=== PATIENT | male | born 1975 | race Caucasian/White ===

== ENCOUNTER 2019-04-09 18:46 | Emergency (ER) | payer OTHER, SELFPAY ==
[2019-04-09] VITALS (14 sets, daily range): BP systolic 152–167; BP diastolic 96–104; PULSE 87–131; RESP 10–18; TEMP 36.8; O2SAT 94–100
[2019-04-09] MEDS: EPINEPHrine 0.3 MG KIT IM (18:50)
--- NOTE | 2019-04-09 18:52 | W.ED.GENAD ---
Discharge Plan Disposition Patient Disposition: HOME Condition: Stable Discharge Details Chief Complaint: Allergic Clinical Impression: Anaphylaxis Primary Care Provider: Sharon Yap ED Provider: Mesfin Goins Home Meds and New Rx's Prescriptions: New prednisone 20 mg tablet 20 mg PO DAILY Qty: 12 RF: 0 epinephrine 0.3 mg/0.3 mL auto-injector 0.3 mg IM ONCE PRN (Reason: anaphylaxis) Qty: 2 RF: 0 Continued famotidine [Pepcid AC] 10 MG tablet 10 mg PO DAILY RF: 0 Discharge Instructions Instructions: Anaphylaxis (ED) Additional Instructions: if you develop the rash with shortness of breath, abdominal pain, vomit or feel your throat swelling use your epi pen and return to the emergency department you can take benadryl as needed for itching, follow dosing instructions on packaging Medical Decision Making 43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 he arrives tachycardia with stable bp, exam and symptoms consistent with anaphylaxis, will tx with IM epi, iv steroids and h2 blockers (took benadryl at home). He was stung in the right congregational and this site as no signs of trauma or infection at this time pt's erythema now gone and Hr in the 80's and he feels much better, will continue to monitor pt remains stable, asymptomatic at this time pt requesting d/c and feel this is reasonable given no symptoms and hd stable. Return precautions given Differential Diagnosis anaphylaxis, allergic reaction HPI General Mode of arrival: ambulatory. Date/Time Provider Initiated Documentation: 04/09/19 18:48. Limitations to Documentation: no limitations. Information obtained by: patient. History of Present Illness 43 year old M presents to the emergency department with the chief complaint of rash, described as moderate, Patient started experiencing this hour(s) (1) and it has been constant. No relieving factors improve symptom(s), No exacerbating factors reported . Patient did receive the following treatments prior to arrival, other (benadryl) Related Data Home Medications Medication Instructions Recorded Confirmed famotidine [Pepcid AC] 10 mg PO DAILY 01/07/17 11/21/17 epinephrine 0.3 mg IM ONCE PRN #2 each 07/01/19 prednisone 20 mg PO DAILY #12 tab 04/09/19 Previous Rx's Medication Instructions Recorded epinephrine 0.3 mg IM ONCE PRN #2 each 04/09/19 prednisone 20 mg PO DAILY #12 tab 04/09/19 Allergies Allergy/AdvReac Type Severity Reaction Status Date / Time Penicillins Allergy Mild Skin Rash Unverified 11/21/17 19:16 General Stated Complaint: Allergic SOL: 2 Review of Systems Review of Systems All systems reviewed & are unremarkable except as noted in HPI and below Constitutional Denies chills and Denies fever(s) ENT Denies change in voice Cardiovascular Denies chest pain Gastrointestinal Denies abdominal pain, Denies nausea and Denies vomiting Musculoskeletal Denies joint swelling PFSH Social History Smoking/Tobacco Use Status: Never Alcohol Intake: current Alcohol Intake frequency: a few times a month Drug use: Never Substance use type: does not use Do you feel safe at home: Yes Do you feel safe in your relationship?: Yes Exam Const General: no acute distress Orientation: alert HENMT Head: normal to inspection Ears: external ears normal General nose exam: external nose normal Mouth: moist mucous membranes Eyes General: appearance normal, both eyes and all related structures Neck Neck: normal visual inspection Resp Effort & Inspection: normal respiratory effort and able to speak in complete sentences Cardio Rate: tachycardic Skin General skin exam: elasticity normal Neuro General: alert and oriented x3 Extrem General: normal to inspection Psych Mental Status: mental status grossly normal Course Vital Signs Temperature 36.8 C 04/09/19 18:49 Pulse 131 H 04/09/19 18:49 Respiratory Rate 14 04/09/19 18:49 Blood Pressure 167/104 H 04/09/19 18:49 Pulse Oximetry 97 04/09/19 18:49 Temperature 36.8 C 04/09/19 18:49 Temperature Source Tympanic 04/09/19 18:49 Pulse 131 H 04/09/19 18:49 Respiratory Rate 14 04/09/19 18:49 Blood Pressure 167/104 H 04/09/19 18:49 Blood Pressure Position Sitting 04/09/19 18:49 Pulse Oximetry 97 04/09/19 18:49 Oxygen Delivery Method Room Air 04/09/19 18:49 Oxygen Flow Rate 0 04/09/19 18:49 Pain Level 0 04/09/19 18:49 Critical Care Time Critical Care Time: Yes Total Critical Care Time: 60 (minutes) Attestation: time spent administering IM epi, frequent reassessments, monitoring hemodynamics in patient with anaphylaxis with potential to deteriorate at any time
--- NOTE | 2019-04-09 18:55 | ED.GENADUL_ITS ---
Discharge Plan Disposition Patient Disposition: HOME Condition: Stable Discharge Details Chief Complaint: Allergic Clinical Impression: Anaphylaxis Primary Care Provider: Sharon Yap ED Provider: Mesfin Goins Home Meds and New Rx's Prescriptions: New prednisone 20 mg tablet 20 mg PO DAILY Qty: 12 RF: 0 epinephrine 0.3 mg/0.3 mL auto-injector 0.3 mg IM ONCE PRN (Reason: anaphylaxis) Qty: 2 RF: 0 Continued famotidine [Pepcid AC] 10 MG tablet 10 mg PO DAILY RF: 0 Discharge Instructions Instructions: Anaphylaxis (ED) Additional Instructions: if you develop the rash with shortness of breath, abdominal pain, vomit or feel your throat swelling use your epi pen and return to the emergency department you can take benadryl as needed for itching, follow dosing instructions on packaging Medical Decision Making 43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 he arrives tachycardia with stable bp, exam and symptoms consistent with anaphylaxis, will tx with IM epi, iv steroids and h2 blockers (took benadryl at home). He was stung in the right taoist and this site as no signs of trauma or infection at this time pt's erythema now gone and Hr in the 80's and he feels much better, will continue to monitor pt remains stable, asymptomatic at this time pt requesting d/c and feel this is reasonable given no symptoms and hd stable. Return precautions given Differential Diagnosis anaphylaxis, allergic reaction HPI General Mode of arrival: ambulatory . Date/Time Provider Initiated Documentation: 04/09/19 18:48 . Limitations to Documentation: no limitations . Information obtained by: patient . History of Present Illness 43 year old M presents to the emergency department with the chief complaint of rash, described as moderate, Patient started experiencing this hour(s) (1) and it has been constant. No relieving factors improve symptom(s), No exacerbating factors reported . Patient did receive the following treatments prior to arrival, other (benadryl) Related Data Home Medications Medication Instructions Recorded Confirmed famotidine [Pepcid AC] 10 mg PO DAILY 01/07/17 11/21/17 epinephrine 0.3 mg IM ONCE PRN #2 each 07/01/19 prednisone 20 mg PO DAILY #12 tab 04/09/19 Previous Rx's Medication Instructions Recorded epinephrine 0.3 mg IM ONCE PRN #2 each 04/09/19 prednisone 20 mg PO DAILY #12 tab 04/09/19 Allergies Allergy/AdvReac Type Severity Reaction Status Date / Time Penicillins Allergy Mild Skin Rash Unverified 11/21/17 19:16 General Stated Complaint: Allergic SOL: 2 Review of Systems Review of Systems All systems reviewed & are unremarkable except as noted in HPI and below Constitutional Denies chills and Denies fever(s) ENT Denies change in voice Cardiovascular Denies chest pain Gastrointestinal Denies abdominal pain, Denies nausea and Denies vomiting Musculoskeletal Denies joint swelling PFSH Social History Smoking/Tobacco Use Status: Never Alcohol Intake: current Alcohol Intake frequency: a few times a month Drug use: Never Substance use type: does not use Do you feel safe at home: Yes Do you feel safe in your relationship?: Yes Exam Const General: no acute distress Orientation: alert HENMT Head: normal to inspection Ears: external ears normal General nose exam: external nose normal Mouth: moist mucous membranes Eyes General: appearance normal, both eyes and all related structures Neck Neck: normal visual inspection Resp Effort & Inspection: normal respiratory effort and able to speak in complete sentences Cardio Rate: tachycardic Skin General skin exam: elasticity normal Neuro General: alert and oriented x3 Extrem General: normal to inspection Psych Mental Status: mental status grossly normal Course Vital Signs Temperature 36.8 C 04/09/19 18:49 Pulse 131 H 04/09/19 18:49 Respiratory Rate 14 04/09/19 18:49 Blood Pressure 167/104 H 04/09/19 18:49 Pulse Oximetry 97 04/09/19 18:49 Temperature 36.8 C 04/09/19 18:49 Temperature Source Tympanic 04/09/19 18:49 Pulse 131 H 04/09/19 18:49 Respiratory Rate 14 04/09/19 18:49 Blood Pressure 167/104 H 04/09/19 18:49 Blood Pressure Position Sitting 04/09/19 18:49 Pulse Oximetry 97 04/09/19 18:49 Oxygen Delivery Method Room Air 04/09/19 18:49 Oxygen Flow Rate 0 04/09/19 18:49 Pain Level 0 04/09/19 18:49 Critical Care Time Critical Care Time: Yes Total Critical Care Time: 60 (minutes) Attestation: time spent administering IM epi, frequent reassessments, monitoring hemodynamics in patient with anaphylaxis with potential to deteriorate at any time
[2019-04-09] MEDS: methylPREDNISolone SUCC 125 MG VIAL IVP (18:56)
[2019-04-09] MEDS: Normal Saline 1,000 ML 1000 ML IV (18:57)
[2019-04-09] MEDS: diphenhydrAMINE 25 MG CAP PO (19:21)
== END 2019-04-09 21:15 | disposition home or self-care (01) ==
LOC: ER 20:05
PROVIDERS: Emergency Provider Emergency Medicine; PCP Family Medicine
DX: T63.411A Toxic effect of venom of centipedes and venomous millipedes, accidental (unintentional), initial encounter (principal)
CPT/HCPCS: 96361; 96372; 96374; 96375; 99291; J0171; J2930

== ENCOUNTER 2022-09-05 08:21 | Emergency (ER) | payer OTHER, SELFPAY ==
[2022-09-05 08:27] VITALS: BP 172/118; PULSE 83; RESP 18; TEMP 36.6; O2SAT 96
--- NOTE | 2022-09-05 09:46 | ED.GENADUL_ITS ---
Discharge Plan Disposition Patient Disposition: Home Condition: Stable Discharge Details Clinical Impression: Left shoulder pain, Radicular pain in left arm Primary Care Provider: None,None ED Provider: Gerardo Vincent Home Meds and New Rx's Prescriptions: New cyclobenzaprine 10 mg tablet 10 mg PO TID PRNQty: 10 0RF Continued epinephrine 0.3 mg/0.3 mL auto-injector 0.3 mg IM ONCE PRN (Reason: anaphylaxis) Qty: 2 0RF nebivolol 10 mg Tablet 10 mg PO DAILY Discharge Instructions Instructions: Shoulder Pain (ED) Additional Instructions: You are hesitant to take morphine or an anti-inflammatory which certainly makes controlling your pain more difficult. I strongly recommend [id number] Tylenol and/or Naprosyn as directed for symptomatic control. Cool and/or warm compresses every 2 hours for 20 minutes. Gentle stretching as tolerated. Flexeril as directed, this medication can cause drowsiness. Please contact your primary care provider tomorrow to discuss your ER visit and need for outpatient reevaluation. Discharge Data Discharge Date/Time-TO BE ENTERED AT DEPARTURE: 09/05/22 11:07 Medical Decision Making This is a 46-year-old gentleman past medical history of hypertension presenting to the ER stating he awoke 4 or 5 mornings ago feeling stiffness to his left neck-upper back associated with paresthesias down his arm, and discomfort. He has tried [id number] Tylenol with little relief. States he was told not to take anti-inflammatories secondary to edema. He denies any chest pain or shortness of breath. states that this is actually been going on probably for a couple of weeks and he started to get better but then overdid it causing more pain. Clinically this certainly appears to be musculoskeletal with radiculopathy. There is no midline point tenderness in his cervical spine. He is afebrile. Neuro, vascular, tendon intact. No chest pain or shortness of breath, extremely low suspicion for any cardiac etiology. Given there was no obvious trauma, x-ray likely of little value. Discussed options with patient. He is agreeable to IM Toradol and Norflex. He is quite hesitant about Toradol but agreeable to take it. He declines any morphine. He also declines a sling. On reevaluation he reports modest relief of his discomfort although symptoms have not resolved completely. Patient is requesting discharge and is agreeable to a short-term prescription of Flexeril. He does not want anything stronger. He will continue taking [id number] medications. We did discuss the importance of outpatient follow-up whether it be through his PCP or orthopedics for further evaluation, potential physical therapy, advanced imaging, etc. Standard discharge and return precautions were provided. Patient understands, is agreeable to this plan, and has no additional questions or concerns upon discharge. This documentation was generated using [employer] system, please disregard any oddities of phrase or misspellings. Medical Records Medical records reviewed: Yes I reviewed the patient's medical records. Sign Out No HPI General Mode of arrival: ambulatory . Date/Time Provider Initiated Documentation: 09/05/22 08:38 . Limitations to Documentation: no limitations . Information obtained by: patient and family . History of Present Illness 46 year old M presents to the emergency department with the chief complaint of L shoulder pain, described as severe, with intensity rated at 8. Quality is described as aching, and is localized to the left and upper extremity. Patient extremity (down left arm). Patient started experiencing this day(s) (4) and it has been constant. No relieving factors improve symptom(s), Movement worsens symptoms . Patient notes no other symptoms.. Patient did receive the following treatments prior to arrival, none Related Data Home Medications Medication Instructions Recorded Confirmed epinephrine 0.3 mg/0.3 mL 0.3 mg (0.3 mL) IM ONCE PRN 04/09/19 09/05/22 injection, auto-injector anaphylaxis #2 ea cyclobenzaprine 10 mg tablet 10 mg PO TID PRN #10 tabs 09/05/22 nebivolol 10 mg tablet 10 mg PO DAILY 09/05/22 09/05/22 Previous Rx's Medication Instructions Recorded epinephrine 0.3 mg/0.3 mL 0.3 mg (0.3 mL) IM ONCE PRN 04/09/19 injection, auto-injector anaphylaxis #2 ea cyclobenzaprine 10 mg tablet 10 mg PO TID PRN #10 tabs 09/05/22 Allergies Allergy/AdvReac Type Severity Reaction Status Date / Time Penicillins Allergy Mild Skin Rash Unverified 11/21/17 19:16 General Stated Complaint: Orthopedic SOL: 4 Review of Systems Constitutional Constitutional: Denies fever(s) and Denies weakness ENT Ears, Nose, Mouth, and Throat: Denies neck pain Cardiovascular Cardiovascular: Denies chest pain and Denies dyspnea Respiratory Respiratory: Denies cough and Denies dyspnea Gastrointestinal Gastrointestinal: Denies abdominal pain, Denies nausea and Denies vomiting Musculoskeletal Musculoskeletal: Reports back pain, Denies myalgias, Denies arthralgias, Denies neck pain, Denies numbness, Reports stiffness and Reports tingling Integumentary/Breasts Skin/Breast: Denies rash Neurologic Neurologic: Denies numbness, Reports tingling and Denies weakness PFSH All Active Problems Left shoulder pain (Acute) Radicular pain in left arm (Acute) Social History Smoking/Tobacco Use Status: Never Smoking risk assessment performed?: Yes Alcohol Intake: current Alcohol Intake frequency: a few times a month Drug use: Occasionally Substance use type: marijuana Do you feel safe at home: Yes Do you feel safe in your relationship?: Yes Exam Const General: cooperative, healthy appearing and no acute distress Orientation: alert and awake HENVA Head: normal to inspection, normocephalic and atraumatic Face and sinus: normal facial exam Mouth: moist mucous membranes Eyes Conjunctivae: conjunctivae normal Neck Neck: normal visual inspection, full ROM, no meningeal signs, trachea midline, supple and nontender Chest Chest: normal inspection of the chest and normal palpation of entire chest wall Resp Effort & Inspection: normal respiratory effort and able to speak in complete sentences Auscultation: clear to auscultation bilaterally Cardio Rate: regular rate Rhythm: regular rhythm Back/Spine/Pelvis Back: no CVA tenderness and back tenderness Back/spine/pelvis image: 1. Diffuse soft tissue tenderness. There is no bony point tenderness, swelling, erythema, spasm. Skin General skin exam: no rashes or lesions noted Neuro General: patient alert, patient awake, moves all extremities and no focal motor deficits Cognition: normal cognition Speech: speech normal Gait: normal gait Motor: muscle tone normal throughout, strength 5/5 throughout, no movement abnormalities noted and no fasciculations Sensory Exam: no sensory deficits noted Extrem General: normal to inspection, full ROM and capillary refill normal Other: Significant increase of pain with movement of the left arm especially greater than 90 degrees. Normal radial pulse and capillary refill. 5 out of 5 strength. Neuro, vascular, tendon intact. Psych Appearance: grossly normal Mental Status: mental status grossly normal Course Vital Signs Vital signs: Vital Signs Temperature 36.6 C 09/05/22 08:27 Pulse 83 09/05/22 08:27 Respiratory Rate 18 09/05/22 08:27 Blood Pressure 172/118 H 09/05/22 08:27 Pulse Oximetry 96 09/05/22 08:27 Temperature 36.6 C 09/05/22 08:27 Pulse 83 09/05/22 08:27 Respiratory Rate 18 09/05/22 08:27 Respiratory Effort Non-Labored 09/05/22 08:31 Blood Pressure 172/118 H 09/05/22 08:27 Blood Pressure Position Sitting 09/05/22 08:27 Pulse Oximetry 96 09/05/22 08:27 Oxygen Delivery Method Room Air 09/05/22 08:27 Oxygen Flow Rate 0 09/05/22 08:27 PAWSS Have you Been Recently Intoxicated or Drunk Within the Last 30 days?: No Have you Ever Experienced Previous Episodes of Alcohol Withdrawal?: No Have you ever Experienced Withdrawal Seizures?: No Have you ever Experienced Delirium Tremens(DT)s?: No Have you ever undergone Alcohol Rehabilitation Treatment (i.e, inpt ot outpatient treatment programs)?: No Have you ever Experienced Blackouts?: No Have you ever Combined Alcohol with other Downers within the last 90 days?: No Have you ever Combined Alcohol with any other Substance of Abuse during the last 90 days?: No Positive Blood Alcohol level on Presentation? [PCS.BAL]: No Evidence of Increased Autonomic Activity (i.e. HR>120, tremor, sweating, agitation, nausea)?: No Result: 0
[2022-09-05] MEDS: Orphenadrine 60 MG/2 ML VIAL IM (10:13)
[2022-09-05] MEDS: Ketorolac 60 MG/2 ML VIAL IM (10:13)
[2022-09-05 10:22] VITALS: BP 163/116; PULSE 68; O2SAT 97
[2022-09-05] MEDS: Cyclobenzaprine 10 MG TAB, 3 TABS/BTL 30 MG (11:01)
== END 2022-09-05 11:07 | disposition home or self-care (01) ==
PROVIDERS: Emergency Provider Physician Assistant
DX: M25.512 Pain in left shoulder (principal); M79.602 Pain in left arm; M54.10 Radiculopathy, site unspecified
CPT/HCPCS: 96372; 99284; J2360; 99283; J1885

== ENCOUNTER 2023-05-27 17:09 | Outpatient (CLI) | payer OTHER, SELFPAY ==
[2023-05-27 15:29] LABS: D-Dimer 135 ng/mlFEU (<500)
== END 2023-05-27 17:10 | disposition home or self-care (01) ==
LOC: LBO 17:09
PROVIDERS: Visit Provider Nurse Practitioner Family
DX: M79.651 Pain in right thigh (principal)
CPT/HCPCS: 36415; 85379

== ENCOUNTER 2024-01-20 08:11 | Emergency (ER) | payer OTHER, SELFPAY ==
[2024-01-20 08:13] VITALS: BP 190/118; PULSE 70; RESP 16; TEMP 37; O2SAT 95
--- NOTE | 2024-01-20 08:32 | W.ED.GENAD ---
Discharge Plan Disposition Patient Disposition: Home Condition: Stable Discharge Details Clinical Impression: Thoracic back sprain Primary Care Provider: Leandra Alston ED Provider: Edu Baker Home Meds and New Rx's Prescriptions: New cyclobenzaprine 10 mg tablet 10 mg PO TID PRN (Reason: back strain) Qty: 30 0RF Continued albuterol sulfate 90 mcg/actuation HFA aerosol inhaler 1 inh inhalation Q6H PRN (Reason: shortness of breath or wheezing) Qty: 8.5 0RF epinephrine 0.3 mg/0.3 mL auto-injector 0.3 mg IM ONCE PRN (Reason: anaphylaxis) Qty: 2 0RF nebivolol 10 mg Tablet 10 mg PO DAILY Discharge Instructions Instructions: Back Pain (ED) Additional Instructions: You were seen in the emergency department for your right-sided thoracic back strain. Please take 1000 mg of Tylenol every 6 hours consistently. Please take 2 Aleve in the morning and 2 in the evening, this will be easier than taking ibuprofen 4 times per day. Take the prescribed muscle relaxer sent to [facility] 3 times per day as needed, try to maintain good posture, apply gentle heat and ice to the area rating fashion, apply an [id number] lidocaine patch to the area for 12 hours each day, massage therapy or physical therapy visits, please return for any numbness and tingling in the arms or legs especially symmetrical or any problems urinating or defecating with groin numbness. HPI General Date/Time Provider Initiated Documentation: 01/20/24 08:18. HPI Narrative: 48 year-old male presents to ED today by POV/ambulating with a chief complaint of R thoracic back pain with onset for the past two days, felt he strained it while attempting to lift a heavy garbage bin from his truck. Quality described as R sided upper back pain, with muscle tension, no radiation to numbness/tingling, weakness, trauma, urinary retention, bowel incontinence, groin numbness. Severity is described as moderate to severe. Palliating factors include took ibuprofen around 0530 this morning. Provoking factors include nothing specific. Patient not anticoagulated. Related Data Home Medications Medication Instructions Recorded Confirmed epinephrine 0.3 mg/0.3 mL 0.3 mg (0.3 mL) IM ONCE PRN 04/09/19 01/20/24 injection, auto-injector anaphylaxis #2 ea nebivolol 10 mg tablet 10 mg PO DAILY 09/05/22 01/20/24 albuterol sulfate 90 mcg/actuation 1 inh inhalation Q6H PRN shortness 10/01/22 01/20/24 aerosol inhaler of breath or wheezing #8.5 grams cyclobenzaprine 10 mg tablet 10 mg PO TID PRN back strain #30 01/20/24 tabs Previous Rx's Medication Instructions Recorded epinephrine 0.3 mg/0.3 mL 0.3 mg (0.3 mL) IM ONCE PRN 04/09/19 injection, auto-injector anaphylaxis #2 ea albuterol sulfate 90 mcg/actuation 1 inh inhalation Q6H PRN shortness 10/01/22 aerosol inhaler of breath or wheezing #8.5 grams cyclobenzaprine 10 mg tablet 10 mg PO TID PRN back strain #30 01/20/24 tabs Allergies Allergy/AdvReac Type Severity Reaction Status Date / Time bee venom protein (honey bee) Allergy Severe Anaphylaxis Verified 01/20/24 08:18 Penicillins Allergy Mild Skin Rash Unverified 01/20/24 08:18 General Stated Complaint: Nk/Back Pain SOL: 3 Review of Systems All systems reviewed & are unremarkable except as noted in HPI and below Exam Narrative Exam Narrative: GENERAL APPEARANCE: Well-nourished, non-toxic, awake and alert, atraumatic, no acute distress. SKIN: Warm, pink, dry, intact, without rashes/lesions/ulcerations. HEAD: Normocephalic, atraumatic, normal hair distribution for gender/age. EYES: Pupils PERRLA, EOMs intact without nystagmus, normal conjunctiva, no exudates on lids/lashes. ENT: Nares patent, no circumoral cyanosis, no facial swelling NECK: Supple, trachea midline, painless cervical ROM. LUNGS/CHEST: Non-labored respirations, normal A/P diameter, symmetrical expansion, no chest wall deformity HEART (CV/PV): No peripheral edema, no JVD. ABDOMEN: Soft, non-distended, no guarding. MSK: Normal ROM, no swelling/deformity to bilateral UEs or LEs, moving all extremities without weakness, no cyanosis, spine midline without tenderness, normal curvature, R sided thoracic back muscle tension, no midline vertebral tenderness/crepitus/step-offs NEURO: Mental Status AAOx4 - alert to person, place, time, events No facial droop, no forehead involvement. Motor: No focal weakness - strength 5/5 in bilateral UEs and LEs, proximal and distal, symmetric. Sensory: sensation intact to light touch globally. Gait normal: patient ambulated without ataxia into ED room. PSYCH: euthymic, cooperative, pleasant, appropriate speech Course Vital Signs Vital signs: Vital Signs Temperature 37.0 C 01/20/24 08:13 Pulse 70 01/20/24 08:13 Respiratory Rate 16 01/20/24 08:13 Blood Pressure 190/118 H 01/20/24 08:13 Pulse Oximetry 95 01/20/24 08:13 Temperature 37.0 C 01/20/24 08:13 Temperature Source Skin 01/20/24 08:13 Pulse 70 01/20/24 08:13 Respiratory Rate 16 01/20/24 08:13 Respiratory Effort Normal, Non-Labored 01/20/24 08:17 Blood Pressure 190/118 H 01/20/24 08:13 Blood Pressure Position Sitting 01/20/24 08:13 Pulse Oximetry 95 01/20/24 08:13 Oxygen Delivery Method Room Air 01/20/24 08:13 Oxygen Flow Rate 0 01/20/24 08:13 Pain Level 9 01/20/24 08:21 Medical Decision Making This dictation utilizes [id number] dictation software and may contain unedited grammatical errors. 48 y/o M presents to ED today with a chief complaint of R sided thoracic back strain from reaching injury two days ago. Patient denies trauma, denies numbness/tingling, moving all extremities without issue, no urinary/bowel changes. Patients' medical history: noncontributory. Family and social history: noncontributory. Pertinent exam findings / vital signs include R thoracic back muscle tension, no midline tenderness, neuro intact all extremities, no signs of cauda equina. Differential / pathologies of concern include Thoracic Back Strain, not trauma, Muscle Spasm. Diagnostic studies of: -none. Interventions of: -outpatient Rx for cyclobenzaprine. ED Course/Assessment/Plan: Counseled the patient on adequate dosing of Tylenol, NSAIDs, cyclobenzaprine, topical Lidoderm patch, alternating heat and ice to the area and performing gentle stretching exercises, encouraged follow-up with physical therapy or massage therapy, urged him to try to make an appointment for MRI if his pain persist past 2 weeks. Counseled on signs and symptoms of cauda equina and other neurologic concerns with strict return criteria. Findings not consistent with neurologic deficit, fracture or trauma. Disposition of thoracic back sprain. Patient verbalized understanding of the plan and return to ED criteria and engaged in shared decision making. Medical Records Medical records reviewed: Yes I reviewed the patient's medical records. Quality:[facility] Health Related Social Needs: No Data to Display PFSH All Active Problems (Updated 01/20/24 @ 08:34 by RITA Hawkins) Thoracic back sprain (Acute) Cough (Acute) Social History Smoking/Tobacco Use Status: Never Smoking risk assessment performed?: Yes Alcohol Intake: current Alcohol Intake frequency: a few times a month Drug use: Occasionally Substance use type: marijuana Do you feel safe at home: Yes Do you feel safe in your relationship?: Yes
[2024-01-20] MEDS: Acetaminophen 500 MG TAB 1000 MG PO (08:40)
[2024-01-20] MEDS: Cyclobenzaprine 10 MG TAB PO (08:40)
[2024-01-20] MEDS: Lidocaine 5% Patch 1 PATCH TP (08:41)
[2024-01-20 08:49] VITALS: BP 155/100; PULSE 78; O2SAT 97
== END 2024-01-20 08:52 | disposition home or self-care (01) ==
PROVIDERS: Emergency Provider Physician Assistant; PCP Nurse Practitioner Family
DX: S23.3XXA Sprain of ligaments of thoracic spine, initial encounter; X50.0XXA Overexertion from strenuous movement or load, initial encounter
CPT/HCPCS: 99283

== ENCOUNTER 2024-11-12 13:58 | Outpatient (CLI) | payer OTHER, SELFPAY ==
--- NOTE | 2024-11-12 08:56 | DI.RAD_ITS ---
Exam(s) XR FINGER LT INDEX EXAM: XR FINGER LT INDEX CLINICAL HISTORY: bump to left index finger DIP, M79.645. TECHNIQUE: 2D digital imaging was performed. Three views. COMPARISON: None. FINDINGS: BONES: No acute fracture is present. No bony destructive lesion is seen. JOINTS: No dislocation present. Tiny area of lucency at the radial aspect of the distal aspect of th e middle phalanx at the articular surface. This could versus small bony erosion versus small fractur e fragment. SOFT TISSUE: No mass visible. No foreign body or soft tissue calcifications. IMPRESSION: Small bony erosion versus subacute fracture at the distal middle phalanx of the index finger. DATA REPOSITORY: RADIATION DOSE DELIVERED:
== END 2024-11-12 14:18 ==
LOC: DI 14:00
PROVIDERS: PCP Nurse Practitioner Family; Visit Provider Nurse Practitioner Family
DX: M79.645 Pain in left finger(s) (principal)
CPT/HCPCS: 73140

== ENCOUNTER 2024-12-26 13:59 | Emergency (ER) | payer OTHER, SELFPAY ==
[2024-12-26] VITALS (9 sets, daily range): BP systolic 137–186; BP diastolic 92–113; PULSE 76–112; RESP 12–14; TEMP 36.8; O2SAT 94–99
--- NOTE | 2024-12-26 14:45 | DI.RAD_ITS ---
Exam(s) XR SHOULDER RT COMPLETE 2+V EXAM: XR SHOULDER RT COMPLETE 2+V CLINICAL HISTORY: lateral pain after fall. TECHNIQUE: 2D digital imaging was performed. Five views. COMPARISON: No exams were available for comparison FINDINGS: BONES: No acute fracture is present. No bony destructive lesion is seen. Chronic appearing deformity at the distal clavicle. Spurring at the undersurface of the acromion. JOINTS: No dislocation present. Mild spurring at the AC joint and glenoid. SOFT TISSUE: Normal. IMPRESSION: No acute abnormality DATA REPOSITORY: RADIATION DOSE DELIVERED:
--- NOTE | 2024-12-26 14:45 | DI.RAD_ITS ---
Exam(s) XR WRIST RT COMPLETE EXAM: XR WRIST RT COMPLETE CLINICAL HISTORY: radial pain after fall. TECHNIQUE: 2D digital imaging was performed. Three views. COMPARISON: No exams were available for comparison FINDINGS: BONES: No acute fracture is present. No bony destructive lesion is seen. JOINTS: The carpal bones are normally aligned. SOFT TISSUE: Normal. IMPRESSION: Unremarkable radiographs of the right wrist. DATA REPOSITORY: RADIATION DOSE DELIVERED:
--- NOTE | 2024-12-26 14:45 | DI.CT_ITS ---
Exam(s) CT HEAD CERVICAL SPINE WO EXAM: CT HEAD CERVICAL SPINE WO CLINICAL HISTORY: someone fell on him down flight of stairs. TECHNIQUE: Imaging Protocol: Axial computed tomography images with coronal and sagittal reformatted images were created and reviewed COMPARISON: CT HEAD AND CSPINE W/O CONTRAST from 11/21/2017 FINDINGS: Head CT Ventricles and Extra axial spaces: Normal in size and morphology for the patient's age. Hemorrhage: None. Cerebral parenchyma: No evidence of mass or acute infarct. Midline shift: None. Brainstem/Cerebellum: Normal. Calvarium: Normal. Visualized Paranasal sinuses/Mastoids: Clear. Soft tissues: Unremarkable. Cervical Spine CT BONES: Vertebral body heights are maintained. Alignment is normal. There is no evidence of acute frac ture. Degenerative disc changes and facet degenerative changes are seen . SOFT TISSUES: No paraspinal hematoma. The airway appears intact. No pneumothorax is seen at the lung apices. IMPRESSION: Head CT: No acute abnormality. C-spine CT: Degenerative changes, no acute abnormality. RADIATION DOSE DELIVERED: 1,390.16mGy.cm Total DLP DATA REPOSITORY: All CT scans at this facility are submitted to the National Radiology Data Registry (NRDR) Dose Index Registry (DIR) with the [employer] ([employer]). RADIATION OPTIMIZATION: All CT scans at this facility use at least one of these dose optimization te chniques: automated exposure control; mA and/or kV adjustment per patient size (includes targeted exa ms where dose is matched to clinical indication); or iterative reconstruction.
--- NOTE | 2024-12-26 14:45 | DI.RAD_ITS ---
Exam(s) XR TIB/FIB LT EXAM: XR TIB/FIB LT CLINICAL HISTORY: proximal anterior pain after fall. TECHNIQUE: 2D digital imaging was performed. Two views. COMPARISON: No exams were available for comparison FINDINGS: BONES: No acute fracture is present. No bony destructive lesion is seen. Visualized portion of knee a nd ankle joints are unremarkable. SOFT TISSUE: Mild swelling lateral mid leg. IMPRESSION: Soft tissue swelling. DATA REPOSITORY: RADIATION DOSE DELIVERED:
--- NOTE | 2024-12-26 14:49 | ED.GENADUL_ITS ---
Discharge Plan Disposition Patient Disposition: Home Condition: Good Discharge Details Clinical Impression: Contusion, multiple sites Primary Care Provider: Malika Nguyen ED Provider: Aylin Hagan Home Meds and New Rx's Prescriptions: New celecoxib [Celebrex] 200 mg capsule 200 mg PO BID PRN (Reason: pain) Qty: 20 0RF Continued losartan 50 mg tablet 50 mg PO DAILY Qty: 90 3RF tadalafil 20 mg tablet 20 mg PO DAILY PRN Rx Instructions: administer approximately 30min before sexual activity; do not use more than 1 dose per 24hrs epinephrine 0.3 mg/0.3 mL auto-injector 0.3 mg IM ONCE PRN (Reason: anaphylaxis) Qty: 2 0RF Discharge Instructions Instructions: General Trauma, Adult ED Additional Instructions: Imaging and exam are reassuring here today. You will likely be very sore and still from muscle spasms. Please encourage hydration. Tylneol and/or antiinflammatory (like Aleve) to help with discomfort. Take as directed on the packaging. Heat or ice may help with discomfort as will gentle stretching. Please follow up with primary care in 1-2 weeks for reevaluation, If you develop any new/worsening symptoms, please seek care urgently once again. Referrals: Malika Nguyen, SHERIF [Primary Care Provider] - Discharge Data Discharge Date/Time-TO BE ENTERED AT DEPARTURE: 12/26/24 16:13 [facility] General Date/Time Provider Initiated Documentation: 12/26/24 14:31 . Limitations to Documentation: no limitations . Information obtained by: patient and RN notes reviewed . History of Present Illness 49 year old M presents to the emergency department with the chief complaint of trauma, neck pain, right shoulder and LLE pain, described as moderate, Quality is described as other (stiff and aching), and is localized to the neck, left, right, upper extremity and lower extremity. Patient reports no radiation. Patient started experiencing this hour(s) and it has been constant. Immobilization improves symptom(s), Movement worsens symptoms . Patient notes no other symptoms.. Patient did receive the following treatments prior to arrival, none Related Data Home Medications ?Medication ?Instructions ?Recorded ?Confirmed epinephrine 0.3 mg/0.3 mL 0.3 mg (0.3 mL) IM ONCE PRN 04/09/19 12/26/24 injection, auto-injector anaphylaxis #2 ea tadalafil 20 mg tablet 20 mg PO DAILY PRN 10/22/24 12/26/24 losartan 50 mg tablet 50 mg PO DAILY #90 tabs 11/29/24 12/26/24 celecoxib 200 mg capsule (Celebrex) 200 mg PO BID PRN pain #20 caps 12/26/24 Previous Rx's ?Medication ?Instructions ?Recorded epinephrine 0.3 mg/0.3 mL 0.3 mg (0.3 mL) IM ONCE PRN 04/09/19 injection, auto-injector anaphylaxis #2 ea losartan 50 mg tablet 50 mg PO DAILY #90 tabs 11/29/24 celecoxib 200 mg capsule (Celebrex) 200 mg PO BID PRN pain #20 caps 12/26/24 Allergies Allergy/AdvReac Type Severity Reaction Status Date / Time bee venom protein (honey bee) Allergy Severe Anaphylaxis Verified 12/26/24 14:25 Penicillins Allergy Mild Skin Rash Unverified 12/26/24 14:25 lisinopril AdvReac Intermediate cough Verified 12/26/24 14:25 metoprolol AdvReac Intermediate Depression Verified 12/26/24 14:25 General Stated Complaint: Trauma SOL: 2 Review of Systems Constitutional Constitutional: Reports as per HPI, Denies chills, Denies fever(s), Denies headache(s) and Denies weakness Eyes Eyes: Reports as per HPI and Denies change in vision ENT Ears, Nose, Mouth, and Throat: Denies abnormal hearing and Denies headache(s) Cardiovascular Cardiovascular: Reports as per HPI, Denies chest pain and Denies dyspnea Respiratory Respiratory: Reports as per HPI, Denies cough, Denies pain on inspiration, Denies pain with cough and Denies dyspnea Gastrointestinal Gastrointestinal: Reports as per HPI, Denies abdominal pain, Denies nausea and Denies vomiting Genitourinary Genitourinary: Reports as per HPI and Denies urinary incontinence Musculoskeletal Musculoskeletal: Reports as per HPI Integumentary/Breasts Skin/Breast: Reports as per HPI and Denies rash Neurologic Neurologic: Reports as per HPI, Denies abnormal hearing, Denies abnormal movements, Denies abnormal speech, Denies headache(s), Denies lack of coordination, Denies localized weakness, Denies paresthesias and Denies weakness Exam Const General: cooperative, healthy appearing, comfortable, no acute distress, well developed and well groomed Nutritional Appearance: average body habitus and well nourished Orientation: alert, awake and oriented x3 [facility] Head: normal to inspection, no palpable skull fracture, normocephalic and atraumatic Ears: hearing grossly normal bilaterally, external ears normal and TM's normal bilaterally General nose exam: external nose normal Mouth: oral mucosae normal, lip normal and tongue normal Throat: posterior oropharynx normal Eyes General: appearance normal, both eyes and all related structures Visual Orourke: normal visual orourke by confrontation Alignment and Position: alignment normal Periorbital: periorbital findings normal Eyelids: eyelids normal Conjunctivae: conjunctivae normal Pupils: PERRL EOM: EOM intact bilaterally Neck Neck: normal visual inspection, trachea midline, supple and other (collar in place) Chest Chest: normal inspection of the chest, normal palpation of entire chest wall, no crepitus and no localized rib tenderness Resp Effort & Inspection: normal respiratory effort, able to speak in complete sentences and no respiratory distress Auscultation: clear to auscultation bilaterally, no rales, no rhonchi and no wheezes Cardio Rate: regular rate Rhythm: regular rhythm Heart Sounds: S1 normal and S2 normal GI Inspection: normal to inspection, no abdominal wall ecchymosis, no edema and non-distended Palpation: soft, no hepatosplenomegaly, not firm, no guarding, not rigid and nontender Back/Spine/Pelvis Back: no CVA tenderness Thoracic/Lumbar Spine: thoracic and lumbar spine normal to inspection, thoraco- lumbar ROM normal, No thoraco-lumbar ROM limited, No thoraco-lumbar spasm and No thoracic spinal tenderness Pelvis: no pain with anterior-posterior compression and no pain with lateral compression Skin General skin exam: no rashes or lesions noted Lesions: no lesions Rashes: no rashes Trauma: no lacerations or abrasions Wounds: no wounds Neuro General: patient alert, patient awake, patient oriented x3, gait normal, tone normal and moves all extremities Cranial Nerves: CN's II-XI intact bilaterally Cognition: normal cognition Speech: speech normal Gait: normal gait Motor: muscle tone normal throughout and strength 5/5 throughout Sensory Exam: no sensory deficits noted (no saddle paresthesias) Extrem General: normal to inspection, capillary refill normal, no pedal edema and no calf tenderness Right upper extremity: normal to inspection, full ROM, shoulder/upper arm Details: normal to inspection and tenderness (lateral shoulder, no deformity, axillary nerve testing normal), elbow/forearm Details: normal to inspection, normal ROM and distal pulses intact; no tenderness, no swelling and no deformity and wrist Details: normal to inspection, tenderness Location: of the distal radius; not of the anatomic snuffbox, normal ROM, normal vascular exam and radial pulse present; no swelling Left lower extremity: normal to inspection, normal capillary refill and lower leg Details: tenderness (anteriolateral calf, on focal pain, full ROM) Course Vital Signs Vital signs: Vital Signs Temperature 36.8 C 12/26/24 14:19 Pulse 105 H 12/26/24 14:19 Respiratory Rate 14 12/26/24 14:19 Blood Pressure 186/113 H 12/26/24 14:19 Pulse Oximetry 97 12/26/24 14:19 Temperature 36.8 C 12/26/24 14:19 Temperature Source Oral 12/26/24 14:19 Pulse 105 H 12/26/24 14:19 Respiratory Rate 14 12/26/24 14:19 Blood Pressure 186/113 H 12/26/24 14:19 Blood Pressure Position Sitting 12/26/24 14:19 Pulse Oximetry 97 12/26/24 14:19 Oxygen Delivery Method Room Air 12/26/24 14:19 Oxygen Flow Rate 0 12/26/24 14:19 Pain Level 5 12/26/24 14:19 Medical Decision Making Patient is a pleasant 49-year-old male presenting with chief complaint of trauma. He reports that 3 hours prior to arrival he was working when somebody that was looking above him on a outdoor stairway going up to the roof fell. He reports that the person that fell above him weighed approximately 300 pounds. He landed directly on the after falling about 10 feet in the tube and then subsequently fell another flight of stairs landing again with the larger gentleman on top of him. He states that he did not lose consciousness. Denies any headache. He reports that he has had some neck stiffness, right shoulder and wrist pain, left lower extremity pain. He denies any shortness of breath or chest pain. No pain when taking deep breaths or coughing. He was ambulatory immediately afterwards. Had gone elsewhere, was able to go and speak with his boss regarding the injury and then finally decided to come in for evaluation. Denies any numbness or tingling. Remembers the entire event. On exam, patient appears intact. Resting comfortably no acute distress. No evidence to suggest head trauma. No hemotympanums. No palpable fracture or suggestion of your skull fracture. He neurologically intact. This includes peripherally and at the subtle region. He has 5 out of 5 strength in all extremities. He has no pain with palpation about the chest or compression of like to the chest. Lungs are clear in all orourke. Abdomen is benign. Pelvis is stable. He has tenderness with palpation over the right shoulder, particularly laterally which is exacerbated when lifting his hand up overhead although he does not have full range of motion. He also has discomfort over the distal radius along the dorsal side of the wrist. No pain over the anatomical snuffbox. Neurovascularly intact in the right upper extremity. No axillary nerve dysfunction. Exam the left lower extremity is significant for tenderness along the anterior lateral aspect of the tibia. No finding at the knee, no effusion, full range of motion. 2+ distal pulses. Forage motion of the ankle. Does have slight abrasion and swelling over the area of tenderness. Patient a lso has some midline neck pain which collar was applied for. He has no pain over the T, L or S spine. No CVA tenderness. Bedside E-FAST performed by myself, no significant abnormality noted. Will obtain x-ray of the areas of trauma with the right shoulder, right wrist and left lower extremity. Will obtain CT scan to evaluate for his neck. Given the mechanism, will also obtain head imaging. As he has been ambulatory and has been sometime since the injury, and patient continues to deny any pain or injury to the chest, abdomen/pelvis, will hold off on imaging of these areas. Patient declines any analgesics at this point. Imaging reviewed by radiologist, no acute abnormality noted. Some degenerative changes noted in C-spine which patient was aware of. Reevaluated with the collar off and patient is now denying any midline tenderness and has good range of motion. He does report that he feels slightly stiff but is no longer having midline tenderness. We did discuss treatment of his discomfort and patient declines any analgesics at this point. Reluctantly agreed to prescription of Celebrex. He does have issues with NSAIDs causing GI upset. Patient is also hesitant as he does not currently have insurance. However, he should be covered on Worker's Comp. which she and I did discuss. We did discuss home and [id number] management of his discomfort. Strict return precautions were discussed. Encouraged follow-up with primary care. All of his questions and concerns were addressed and he is in agreement this plan. This documentation was generated using FoxyTasksation system, please disregard any oddities of phrase or misspellings. Quality: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 neurology Surgical History (Updated 11/01/24 @ 13:32 by Denise Martell) H/O adenoidectomy Family History (Updated 11/09/24 @ 14:18 by Malika Nguyen NP) Mother Breast cancer Father Diabetes Sister , 38 from homicide Substance use disorder Sister No problems noted. Daughter No problems noted. Daughter No problems noted. Daughter No problems noted. Maternal Grandfather No problems noted. Maternal Grandmother No problems noted. Paternal Grandfather Heart disease Myocardial infarction Paternal Grandmother Dementia Social History (Updated 11/12/24 @ 12:46 by Lanny Rebolledo) Smoking/Tobacco Use Status: Never Smoking risk assessment performed?: Yes Alcohol Intake: current Alcohol Intake frequency: a few times a week Alcohol type: beer Details: 6 or more drinks monthly or less Drug use: Occasionally Substance use type: marijuana Adopted: No Caregiver/Support person: No Household members: spouse and children Housing: house Number of Children: 7 number of grandchildren: 5 Communication Needs: None Education Level: college Do you need help understanding health information?: Never current occupation: [employer] Sexually active: Yes Do you think of yourself as: straight/heterosexual Current gender identity: male What is your relationship status?: How often do you talk on the phone with friends or family?: decline to answer How often do you get together with friends or relatives?: decline to answer How often do you attend alevism or confucianist services?: decline to answer Do you belong to any clubs or organized social groups?: decline to answer Panel score (0-1 are the most socially isolated patients): 1 NHANES result reviewed/action taken: Yes What type of physical activity do you participate in: other Details: hunting, fishing, outdoor hiking weekly Elisabeth/Yarsani: [employer] Seatbelt use: always Drive intox or ride 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
[2024-12-26] MEDS: Naproxen 250 MG TAB PO (16:00)
== END 2024-12-26 16:13 | disposition home or self-care (01) ==
PROVIDERS: Emergency Provider Physician Assistant; PCP Nurse Practitioner Family
DX: M54.2 Cervicalgia (principal); M25.511 Pain in right shoulder; M25.531 Pain in right wrist; M79.662 Pain in left lower leg; I10 Essential (primary) hypertension; E78.5 Hyperlipidemia, unspecified; W17.89XA Other fall from one level to another, initial encounter; Y93.H3 Activity, building and construction; Y92.89 Other specified places as the place of occurrence of the external cause; Y99.0 Civilian activity done for income or pay
CPT/HCPCS: 99284; 70450; 72125; 73030; 73110; 73590

== ENCOUNTER 2025-05-09 09:09 | Day surgery (SDC) | payer OTHER, SELFPAY ==
[2025-05-09 09:39] VITALS: BP 157/110; PULSE 90; RESP 18; TEMP 36.2; O2SAT 98
[2025-05-09] MEDS: Lactated Ringers 1,000 ML 80 ML IV (09:53)
--- NOTE | 2025-05-09 10:46 | W.ANESPRE ---
General Info Date of Service Date Performed: 05/09/25 Height: 5 ft 10 in Weight: 93 kg Body Mass Index (BMI): 29.4 Surgical Procedure: Operation Date: 05/09/25 11:35 Proposed Procedure Side Surgeon kiran Antony MD Meds Allergies and Home Medications Allergies Allergy/AdvReac Type Severity Reaction Status Date / Time bee venom protein (honey bee) Allergy Severe Anaphylaxis Verified 05/09/25 09:41 Penicillins Allergy Mild Skin Rash Unverified 05/09/25 09:41 lisinopril AdvReac Intermediate cough Verified 05/09/25 09:41 metoprolol AdvReac Intermediate Depression Verified 05/09/25 09:41 Home Medication ?Medication ?Instructions ?Recorded epinephrine 0.3 mg/0.3 mL 0.3 mg (0.3 mL) IM ONCE PRN 04/09/19 injection, auto-injector anaphylaxis #2 ea tadalafil 20 mg tablet 20 mg PO DAILY PRN 10/22/24 losartan 50 mg tablet 50 mg PO DAILY #90 tabs 11/29/24 celecoxib 200 mg capsule (Celebrex) 200 mg PO BID PRN pain #20 caps 12/26/24 bisacodyl 5 mg tablet,delayed 5 mg PO ONCE #4 tabs 04/17/25 release (Dulcolax (bisacodyl)) polyethylene glycol 3350 17 17 g PO ONCE #238 grams 04/17/25 gram/dose oral powder Current Visit Medications: Current Medications Generic Name Dose Route Start Last Admin Trade Name Freq PRN Reason Stop Dose Admin Ringer's Solution 1,000 mls @ 80 mls/hr 05/09/25 06:00 05/09/25 09:53 IV 05/09/25 23:59 80 mls/hr INFUSION SHUBHAM Administration IV Miscellaneous Supplies 1 each 05/09/25 06:00 Iv Access IV 05/09/25 23:59 DIRECTED SHUBHAM Sodium Biphosphate/Sodium Phosphate 133 ml 05/09/25 06:00 Na Phosphate Enema-Adult 133 Ml Btl OK 05/09/25 23:59 DIRECTED SHUBHAM Sodium Chloride 0 ml 05/09/25 06:00 Normal Saline Flush 10 Ml Syr IV 05/09/25 23:59 PRN PRN Sodium Chloride 0 ml 05/09/25 06:00 Normal Saline 10 Ml Vial IJ 05/09/25 23:59 DIRECTED PRN Sterile Water 0 ml 05/09/25 06:00 Water,Injection,Sterile 10 Ml Vial IJ 05/09/25 23:59 DIRECTED PRN [facility] Active Problems Active Problems: Problem Status Onset Code White coat syndrome with diagnosis of hypertension Acute I10 Positive colorectal cancer screening using Cologuard test Acute R19.5 Pain of left lower extremity Acute M79.605 Situational mixed anxiety and depressive disorder Acute F43.23 Paroxysmal atrial fibrillation Chronic I48.0 Insomnia Chronic G47.00 Hyperlipemia Chronic E78.5 Erectile dysfunction Chronic N52.9 Hypertension Chronic I10 Medical History Medical History TEMO on CPAP 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[facility] neurology Surgical History Surgical History H/O adenoidectomy Tobacco Smoking/Tobacco Use Status: Never Passive smoking exposure: No Alcohol Alcohol Intake: current Alcohol intake frequency: a few times a week Alcohol type: beer Details: 6 or more drinks monthly or less Substance Use Substance use: Occasionally Substance use type: marijuana Details: no use in the last 24hrs Vital Signs and Lab Results Vital Signs Most Recent Vital Signs in EMR: Most Recent Vital Signs Temp Pulse Resp BP Pulse Ox 36.2 C L 90 18 157/110 H 98 05/09/25 09:39 05/09/25 09:39 05/09/25 09:39 05/09/25 09:39 05/09/25 09:39 Anesthesia Assessment and Plan Anesthesia History Personal History: Unknown Anesthesia History Family History: No Family History of Anesthesia Complications Exercise Tolerance Exercise Tolerance: Metabolic Equivalents>4 Pertinent Negatives Pertinent Negatives: No Symptoms of GERD, No Major Cardiovascular Symptoms or Complaints and No Major Pulmonary Symptoms or Complaints Cardiac & Pulmonary Exam Cardiac Exam: Normal S1/S2 Heart Sounds Pulmonary Exam: Clear Bilateral Breath Sounds Implantable Cardiac Device Does patient have a Pacemaker or an ICD?: No Airway Exam Known Difficult Airway: No Mallampati Class: 3 Mouth Opening: Normal (> 3cm) Thyromental Distance: Less than 3 cm Neck Range of Motion: Full ROM Neck Circumference: Normal Teeth Condition: Normal Dentition ASA Classification ASA Score: ASA 2 Emergency Case?: No NPO Status NPO Status: NPO Clears >2 hours, Solids >8 hours Anesthesia Plan Resuscitation Status: Full Code Anesthesia Technique: General Anesthesia Airway Planned: Natural Airway Monitors Used: Standard Monitors
[2025-05-09 10:49] VITALS: BMI 29.4
--- NOTE | 2025-05-09 11:21 | BOWEL_PTH ---
PATIENT: Alvin Hyman LOC: [facility] U#:[id number] AGE/SX: 49/M ROOM: RE05/09/[address]: Jennifer Antony MD : [id number] BED: DIS: 05/09/2025 SPEC #: [id number] RECD: 05/09/25 12:58 STATUS: MOHAMUD REJasper #: [id number] INRDA: 05/09/25 11:[address]: Jennifer Antony DEPT: Surgical Specimen RECD BY: Althea Brown ENTERED: 05/09/25 12:59 SP TYPE: Bowel OTHR DR: CHRISTINA Warren Tissues: 1 - BIOPSY BOWEL Procedures: GROSS AND MICRO LEVEL 4 Comments: [id number]
[2025-05-09] MEDS: Endoscopic Tattoo 5 ML SYR IJ (11:28)
[2025-05-09 11:35] VITALS: BP 135/94; PULSE 102; RESP 12; TEMP 36.2; O2SAT 94
--- NOTE | 2025-05-09 11:51 | W.PM.DSUDISC ---
Date of service: 05/09/25 Discharge Plan Disposition Patient Disposition: Home Condition: Stable Discharge Details Attending Provider: Jennifer Antony Primary Care Provider: Malika Nguyen Home Meds and New Rx's Prescriptions: No Action bisacodyl [Dulcolax (bisacodyl)] 5 mg tablet,delayed release (DR/EC) 5 mg PO ONCE Qty: 4 0RF Rx Instructions: Take per colonoscopy instructions provided by ordering providers office polyethylene glycol 3350 17 gram/dose powder 17 g PO ONCE Qty: 238 0RF Rx Instructions: Take per colonoscopy instructions provided by ordering providers office losartan 50 mg tablet 50 mg PO DAILY Qty: 90 3RF tadalafil 20 mg tablet 20 mg PO DAILY PRN Rx Instructions: administer approximately 30min before sexual activity; do not use more than 1 dose per 24hrs epinephrine 0.3 mg/0.3 mL auto-injector 0.3 mg IM ONCE PRN (Reason: anaphylaxis) Qty: 2 0RF celecoxib [Celebrex] 200 mg capsule 200 mg PO BID PRN (Reason: pain) Qty: 20 0RF Discharge Instructions Instructions: Colon Polypectomy, Colonoscopy Activity:: Activity as Tolerated Diet:: As Tolerated Discharge Orders Discharge Orders: Discharge Order (Routine); Ordered 05/09/25 Ordered By: Jennifer Antony DS: Diagnosis Discharge Diagnosis (1) Positive colorectal cancer screening using Cologuard test: Status: Acute (2) Polyp of sigmoid colon: Status: Acute Asessment and Plan: Timing of next colonoscopy will depend on the biopsy result of the polyp that was removed today. I will notify you in writing after 10 days as long as the polyp is not cancerous. If the polyp happens to be cancerous then I will notify you by phone as soon as that result is in. The polyp explains the positive Cologuard test. You are no longer a candidate for Cologuard tests. And the timing of your next colonoscopy will be determined when you are polyp biopsy result is back. I did place a tattoo next to where the polyp used to live in the colon, that way that area can always be looked at closely in the future to check for regrowth. Generally polyps do not regrow often. I also placed clips to help close the area where the polyp used to live after I removed it. Those clips help control bleeding and help you to heal. They will fall out on their own. You do not need to look for them in your stool. Please call if you have unexpected severe abdominal pain or large amounts of rectal bleeding.
--- NOTE | 2025-05-09 11:54 | W.COLOREPORT ---
Date of service: 05/09/25 Time of Service: 11:54 Colonoscopy Report Date of procedure: 05/09/25 Pre-op diagnosis general: Positive Cologuard screening test Post-op diagnosis procedure note: other (Sigmoid polyp) Procedure: Colonoscopy with hot snare polypectomy, tattooing of site Surgeon: Jennifer Antony Anesthesia Type: MAC Estimated blood loss (mL): 1 Pathology: other (Sigmoid polyp) Complications: None Disposition: same day Prep: Miralax/Dulcolax Procedure Description: Informed consent was obtained and the patient was taken to the procedure area. The patient was placed in left lateral decubitus position on the procedure table. Timeout was performed. Anesthesia was induced. A lubricated colonoscope was inserted through the anus and passed to the cecum. The cecum was identified by the ileocecal valve and the appendiceal orifice. The scope was then slowly withdrawn and the colonic and rectal mucosa examined. Rectosigmoid junction at 20cm from the verge, there is a pedunculated 1.5cm polyp present. Polyp excised at base of stalk with hot snare. Mucosa closed with three Resolution endoclips. 0.5mL of SPOT tattoo ink injected near the base of the lesion site for future evaluations. No diverticulosis was seen. No other lesions of the colon or rectum noted. The scope was retroflexed in the anorectal junction examined. Uncomplicated internal hemorrhoids present. Assessment and plan; Sigmoid polyp large and pedunculated, traumatized from the prep. Removed today. This is the cause of positive Cologuard test. Next steps in care and timing of next colonosocopy will depend on polyp pathology. Pt is no longer a candidate for Cologuard. Will notify patient when results available.
[2025-05-09 12:06] VITALS: BP 142/110; PULSE 86; RESP 12; TEMP 36.2; O2SAT 95
--- NOTE | 2025-05-09 13:52 | W.ANESPOSTOP ---
Postoperative Evaluation Date, Time and Location Date Performed: 05/09/25 Time Performed: 11:50 Patient Location: Day Surgery Unit Vital Signs Most Recent Imported Vital Signs: Most Recent Vital Signs Temp Pulse Resp BP Pulse Ox 36.2 C L 86 12 142/110 H 95 05/09/25 12:06 05/09/25 12:06 05/09/25 12:06 05/09/25 12:06 05/09/25 12:06 Pain Score Most Recent Pain Score: Most Recent Pain Score Pain Level 0 05/09/25 12:06 Assessment Mental Status: Awake (Alert & Oriented to Patient Baseline) Airway and Respiratory Function: Patent airway with normal (patient baseline) respiratory exam Cardiovascular Function: Hemodynamically Stable Hydration Status: Adequately Hydrated Nausea & Vomiting: No Nausea or Vomiting Pain: Pt. Denies Any Pain Peripheral Nerve Block: Patient did not receive a nerve block Teaching Patient Teaching: Advised to seek followup for the following concerns (See explanation) Concerns: Other (TEMO) Postoperative Comments:: Patient will take blood pressure medication when he returns home.
== END 2025-05-09 12:23 | disposition home or self-care (01) ==
PROVIDERS: PCP Nurse Practitioner Family; Visit Provider Surgery
PROC: 0DJD8ZZ Inspection of Lower Intestinal Tract, Via Natural or Artificial Opening Endoscopic (ICD-10-PCS; CPT 45378; principal; 2025-05-09 11:30)
DX: Z12.11 Encounter for screening for malignant neoplasm of colon (principal); R19.5 Other fecal abnormalities; D12.5 Benign neoplasm of sigmoid colon
CPT/HCPCS: 45385; 45381; 88305; J2704; J3010

== ENCOUNTER 2025-08-01 15:20 | Outpatient (CLI) | payer OTHER, SELFPAY ==
[2025-08-01 16:38] LABS: Anion Gap 10.0 mmol/L (3-11); BUN 17 mg/dL (7-18); CO2 28.0 mmol/L (21.0-32.0); Calcium 9.4 mg/dL (8.5-10.1); Chloride 102 mmol/L (98-107); Estimated GFR 82.29 (mL/min/1.73m2); Glucose 96 mg/dL (74-106); Potassium 4.0 mmol/L (3.5-5.1); Sodium 140 mmol/L (136-145)
[2025-08-01 16:54] LABS: Hemoglobin A1C 5.6 % (<5.7)
[2025-08-02 19:01] LABS: HIV-1/2 Ag & Ab Screen Negative (Negative)
[2025-08-02 19:05] LABS: HBs Antibody, Quant <3.1 mIU/mL (See Note); Hepatitis B Surface Antigen Negative (Negative)
[2025-08-02 19:08] LABS: Hepatitis C Ab w Rflx HCV PCR Negative (Negative)
== END 2025-08-01 15:21 | disposition home or self-care (01) ==
LOC: LBO 15:20
PROVIDERS: PCP Nurse Practitioner Family; Visit Provider Nurse Practitioner Family
DX: I10 Essential (primary) hypertension (principal); G47.33 Obstructive sleep apnea (adult) (pediatric); Z11.4 Encounter for screening for human immunodeficiency virus [HIV]; Z11.59 Encounter for screening for other viral diseases
CPT/HCPCS: 36415; 80048; 86704; 86706; 86803; 87340; 87389; 83036